=== PATIENT | male | born 1955 | race Hispanic/Latino ===

== ENCOUNTER 2016-11-25 17:57 | Emergency (ER) | payer SELFPAY ==
[2016-11-25] MEDS ORDERED: BENADRYL ONE (18:25)
[2016-11-25] MEDS ORDERED: PEPCID IV ONE ×2 (18:26→18:35)
[2016-11-25] MEDS ORDERED: BENADRYL IV ONE (18:35)
[2016-11-25] MEDS ORDERED: NORCO 5/325 PO ONE (18:45)
--- NOTE | 2016-11-25 18:45 | Emergency Department Report ---
HPI - General Chief Complaint: Allergic Reaction Time Seen by Provider: 11/25/16 18:36 - HPI HPI: Room 24 The patient is a 57-year-old male presenting with a chief complaint of multiple bee stings. The patient states he was outdoors stacking pulled carpets. Patient states when he picked up one of the carpets that up and pull multiple bees began stinging him about his back shoulders and head. The patient states he ran into the house and shower prior to coming to the ED. Patient claims the pain besides stainings as well as a headache. The patient currently gives his pain a score of 4-5/10. 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 Patient denies shortness of breath or throat swelling Location: [see above] Duration: Event Occurred at approximately 17:30 Quality: Dull aching Severity: 4 to 5/10 Modifying factors: [see above] Context: [see above] Mode of transportation: [not driving] ED Past Medical Hx - Past Medical History Previous Medical History?: Yes Hx Hypertension: Yes Additional medical history: sleep apnea - Surgical History Past Surgical History?: No - Family History Family history: no significant - Social History Smoking Status: Never Smoker Substance Use Type: None - Medications Home Medications: Home Medications Medication Instructions Recorded Confirmed Last Taken Type EPINEPHrine (NF) [Epipen (Nf)] 0.3 mg IM ONCE PRN #1 syringekit 11/25/16 Unknown Rx Famotidine [Pepcid] 20 mg PO BID #6 tablet 11/25/16 Unknown Rx HYDROcodone/APAP 5-325 [Peerless 1 - 2 each PO Q6HR PRN #10 tablet 11/25/16 Unknown Rx 5/325] Prednisone [predniSONE 10 mg 10 mg PO .TAPER #1 tab.ds.pk 11/25/16 Unknown Rx (6-Day Pack, 21 Tabs)] diphenhydrAMINE [Benadryl CAP] 50 mg PO Q6H #12 capsule 11/25/16 Unknown Rx ED Review of Systems ROS: Stated complaint: ALLERGIC REACTION TO BEE STING Other details as noted in HPI Comment: All other systems reviewed and negative Constitutional: denies: chills, fever Eyes: denies: eye pain, eye discharge, vision change ENT: denies: ear pain, throat pain Respiratory: denies: cough, shortness of breath, wheezing Cardiovascular: denies: chest pain, palpitations Endocrine: no symptoms reported Gastrointestinal: denies: abdominal pain, nausea, diarrhea Genitourinary: denies: urgency, dysuria Musculoskeletal: denies: back pain, joint swelling, arthralgia Skin: lesions Neurological: denies: headache, weakness, paresthesias Psychiatric: denies: anxiety, depression Hematological/Lymphatic: denies: easy bleeding, easy bruising Physical Exam - Physical Exam Vital Signs: Vital Signs 11/25/16 18:21 Temperature 98.7 F Pulse Rate 86 Blood Pressure 167/102 O2 Sat by Pulse 91 Oximetry Physical Exam: GENERAL: The patient is well-developed well-nourished male lying on stretcher not appearing to be in acute distress. [] HEENT: Normocephalic. 1 region of erythema/bee sting inside the hairline along the right parietal temporal region. No stinger seen. Extraocular motions are intact. Patient has moist mucous membranes. NECK: Supple. No meningitic signs are noted. CHEST/LUNGS: Clear to auscultation. There is no respiratory distress noted. HEART/CARDIOVASCULAR: Regular. There is no tachycardia. There is no gallop rub or murmur. ABDOMEN: Abdomen is soft, nontender. Patient has normal bowel sounds. There is no abdominal distention. SKIN: There several circular regions of erythema which corresponded to bee stings along the patient's back shoulder and bilateral upper extremities. There are no stingers visible at these sites. There is no edema. There is no diaphoresis. NEURO: The patient is awake, alert, and oriented. The patient is cooperative. The patient has normal speech MUSCULOSKELETAL: There is no evidence of acute injury. ED Course Vital Signs 11/25/16 18:21 Temperature 98.7 F Pulse Rate 86 Blood Pressure 167/102 O2 Sat by Pulse 91 Oximetry - Reevaluation(s) Reevaluation #1: 11/25/16 20:23 Patient states he is feeling good. Strong warnings given ED Medical Decision Making - Differential Diagnosis Hymenoptera envenomation Critical care attestation.: If time is entered above; I have spent that time in minutes in the direct care of this critically ill patient, excluding procedure time. ED Disposition Clinical Impression: Hymenoptera sting Disposition: DC-01 TO HOME OR SELFCARE Is pt being admited?: No Does the pt Need Aspirin: No Condition: Stable Instructions: Urticaria (ED), Insect Bite or Sting (ED) Additional Instructions: Return to the emergency department immediately should you develop worsening symptoms, fever, inability to tolerate food or liquid or any other concerns. 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 Please follow up with her for further evaluation) Time of Disposition: 20:23
[2016-11-25 21:28] VITALS: BP 164/99
== END 2016-11-25 20:30 | disposition home or self-care (01) ==
LOC: ED 17:57
DX: R51 Headache (principal); T63.441A Toxic effect of venom of bees, accidental (unintentional), initial encounter; I10 Essential (primary) hypertension
CPT/HCPCS: 96374; 96375; 99283; J1200; J2930